=== PATIENT | female | born 1990 ===

== ENCOUNTER → 2023-07-10 11:29 | Outpatient (CLI) | payer OTHER, SELFPAY ==
[2023-07-10 12:19] LABS: Add Manual Diff / Slide Review NO; Basophils Absolute Auto 0 /uL (0-100); Basophils Percent Auto 0.5 % (0-2); Eosinophils Absolute Auto 100 /uL (0-450); Eosinophils Percent Auto 0.9 % (2-4); Hematocrit 36.6 % (36-46); Hemoglobin 12.6 g/dL (12.0-16.0); Lymphocytes Absolute Auto 2400 /uL (1100-4500); Lymphocytes Percent Auto 28.5 % (25-40); Mean Corpuscular HGB Conc 34.4 % (30-36); Mean Corpuscular Hemoglobin 30.5 PG (26-34); Mean Corpuscular Volume 88.5 fL (80-100); Monocytes Absolute Auto 500 /uL (0-900); Monocytes Percent Auto 6.2 % (3-14); Neutrophils Absolute Auto 5500 /uL (1500-7000); Neutrophils Percent Auto 63.9 % (50-75); Platelet Count 270 X10^3/uL (150-400); Red Blood Cell Count 4.14 X10^6/uL (4.0-5.2); Red Cell Distribution Width 12.2 % (11.6-14.8); White Blood Cell Count 8.5 X10^3/uL (4.5-11.0)
[2023-07-10 12:24] LABS: Appearance Urine UA CLEAR; Bilirubin Urine UA NEGATIVE (NEGATIVE); Color Urine UA YELLOW; Glucose Urine UA NEGATIVE (Negative); Ketones Urine UA NEGATIVE (NEGATIVE); Leukocyte Esterase Urine UA 1+ (NEGATIVE); Nitrite Urine UA NEGATIVE (Negative); Occult Blood Urine UA TRACE-INTACT (Negative); Protein Urine UA NEGATIVE (Negative); Specific Gravity Urine UA 1.015 (1.000-1.035); Urobilinogen Urine UA 0.2 E.U./dL (0.2)
[2023-07-10 12:32] LABS: Bacteria Urine None Seen; RBC Urine 1-5/HPF (0-5/HPF); Squamous Epithelial Cell Urine 0-1 /HPF (0-5/HPF); WBC Urine 1-5/HPF (0-5/HPF)
[2023-07-10 12:39] LABS: Alanine Aminotransferase 14 IU/L (<35); BUN Creatinine Ratio 9.8 (6-22); Blood Urea Nitrogen 6 mg/dL (7-17); Estimated Glomerular Filt Rate > 60 mL/min (>60); Uric Acid 3.4 mg/dL (2.5-6.2)
[2023-07-10 13:52] LABS: Urine N gonorrhoeae NOT DETECTED
[2023-07-10 14:02] LABS: Urine Chlamydia NOT DETECTED
[2023-07-11 04:38] LABS: RPR Screen Non Reactive (Non Reactive)
[2023-07-11 08:36] LABS: Varicella IgG Antibody 441 index (Immune >165)
[2023-07-11 20:12] LABS: HIV 1 & 2 Ab/Ag 4th Gen Combo NEGATIVE (NEGATIVE); Hepatitis B Surface Antigen NEGATIVE s/c (NEGATIVE); Rubella Antibody IgG 23.9 IU/mL (>15)
[2023-07-12 17:14] LABS: Aspartate Aminotransferase 20 IU/L (14-36)
[2023-07-12 18:25] LABS: Hep C Virus Ab w/Reflex Quant NEGATIVE s/c (NEGATIVE)
== END ==
PROVIDERS: Referring Provider Student in an Organized Health Care Education/Training Program; Visit Provider Student in an Organized Health Care Education/Training Program
DX: O09.299 Supervision of pregnancy with other poor reproductive or obstetric history, unspecified trimester (principal)
CPT/HCPCS: 36415; 80055; 81003; 81015; 82565; 84450; 84460; 84520; 84550; 86787; 86803; 86850; 86900; 86901; 87086; 87389; 87491; 87591

== ENCOUNTER → 2023-09-26 15:19 | Outpatient (CLI) | payer OTHER, SELFPAY ==
--- NOTE | 2023-09-26 15:19 | DI.US.S_ITS ---
PROCEDURE: US OB >= 14 WEEKS FETUS INDICATIONS: ANATOMY OUTSIDE/PRIOR DATING DATA: Last menstrual period (LMP): 05/01/2023. LMP-based estimated date of delivery (JULITA): 02/05/2024. First dating scan (date and location): 06/27/2023. Estimated date of delivery (JULITA) from first dating scan: 02/04/2024. The calculations are made using the clinical JULITA of 02/05/2024. TECHNIQUE: Real-time scanning was performed of the fetus, with image documentation and biometric measurements. Endovaginal scanning: Not performed COMPARISON: None. FINDINGS: General: A single living intrauterine gestation is present. Presentation: Transverse. Placenta: Placental position is anterior , without previa. Amniotic fluid index: 18.6 cm, normal range is 5-24 cm. Single deepest vertical pocket is 5.5 cm. heart rate: 157 beats per minute. Maternal cervical canal: 3.8 cm long. Normal lower limit is 2.5 cm. biometrics: Biparietal diameter: 5.2 cm Head circumference: 19.3 cm Abdominal circumference: 18.1 cm Femur length: 3.8 cm Clinically estimated gestational age: 21 weeks, 1 day Composite gestational age from present scan: 22 weeks, 1 day Estimated weight and percentile: 508 g, 97th percentile Anatomic survey: Neuro: Ventricles are non-dilated at less than 10 mm. Cisterna magna is normal at 3-11 mm. Cerebellum is normal in size and morphology. Nuchal skin fold: Normal at less than 6 mm between 14-21 weeks gestational age. Face: Nose and lips, facial profile are normal. Spine: No evidence for spina bifida. Heart: 4-chambered heart is present, with normal ventricular outflow tracts. Diaphragm: Diaphragm is intact. Stomach: Left-sided stomach is present. Kidneys: No hydronephrosis. Normal is less than 5 mm in 2nd trimester, less than 7 mm in 3rd trimester. Cord: 3-vessel cord has orthotopic insertion. Bladder: Normal in size. Extremities: All 4 extremities identified. IMPRESSION: Single intrauterine gestation with estimated age of 22 weeks, 1 day by biometry which is concordant with clinical dating. Estimated weight in 97th percentile. anatomic survey demonstrates no gross abnormalities. Approved by: Yoselin Hill M.D.,Ph.D. on 09/26/2023 at 21:54
== END ==
PROVIDERS: Referring Provider Family Medicine; Visit Provider Family Medicine
DX: O09.292 Supervision of pregnancy with other poor reproductive or obstetric history, second trimester (principal); Z3A.22 22 weeks gestation of pregnancy
CPT/HCPCS: 76811

== ENCOUNTER → 2023-10-17 07:11 | Outpatient (CLI) | payer OTHER, SELFPAY ==
[2023-10-17 09:29] LABS: GTT (PREG) 1 Hour PP 50gm Dose 159 mg/dL (76-139)
== END ==
PROVIDERS: PCP Student in an Organized Health Care Education/Training Program; Referring Provider Family Medicine; Visit Provider Family Medicine
DX: Z34.80 Encounter for supervision of other normal pregnancy, unspecified trimester (principal)
CPT/HCPCS: 36415; 82950

== ENCOUNTER → 2023-10-22 07:35 | Outpatient (CLI) | payer OTHER, SELFPAY ==
[2023-10-22 08:57] LABS: Glucose Fasting Gestational 98 mg/dL (76-95)
[2023-10-22 10:19] LABS: Glucose 1 Hour Gest 175 mg/dL (76-180)
[2023-10-22 10:54] LABS: Glucose 2 Hour Gest 134 mg/dL (76-155)
[2023-10-22 11:07] LABS: Glucose Tol Interp,Gestational INTERPRETATION
[2023-10-22 12:18] LABS: Glucose 3 Hour Gest 119 mg/dL (76-140)
== END ==
PROVIDERS: PCP Student in an Organized Health Care Education/Training Program; Referring Provider Family Medicine; Visit Provider Family Medicine
DX: O09.299 Supervision of pregnancy with other poor reproductive or obstetric history, unspecified trimester (principal)
CPT/HCPCS: 36415; 82951; 82952

== ENCOUNTER → 2023-12-18 11:26 | Outpatient (CLI) | payer OTHER, SELFPAY ==
--- NOTE | 2023-12-18 11:28 | DI.US.S_ITS ---
PROCEDURE: US OB FOLLOW UP INDICATIONS: Fundal height high for dates OUTSIDE/PRIOR DATING DATA: Last menstrual period (LMP): 05/01/2023. LMP-based estimated date of delivery (JULITA): 02/05/2024. First dating scan (date and location): 06/27/2023. Estimated date of delivery (JULITA) from first dating scan: 02/04/2024. Working JULITA is 02/05/2024 TECHNIQUE: Real-time scanning was performed of the fetus, with image documentation and biometric measurements. COMPARISON: [facility], , OB >= 14 WEEKS FETUS, 09/26/2023, 15:37. FINDINGS: General: A single living intrauterine gestation is present. Presentation: Vertex. Placenta: Placental position is anterior, without previa. Amniotic fluid index: 20.1 cm cm, normal range is 5-24 cm. Single deepest vertical pocket is 5.9 cm. heart rate: 158 beats per minute. Maternal cervical canal: 5.1 cm long. Normal lower limit is 2.5 cm. biometrics: Biparietal diameter: 34 weeks 6 days Head circumference: 35 weeks 3 days Abdominal circumference: 36 weeks 1 day Femur length: 33 weeks 4 days Clinically estimated gestational age: 33 weeks Composite gestational age from present scan: 35 weeks Estimated weight and percentile: 2636 g, 96 percentile IMPRESSION: Single living IUP redemonstrated and interval growth is greater than expected with estimated weight 96 percentile. Macrosomia cannot be excluded and close clinical correlation and follow-up is recommended. We strive to produce accurate, complete, and clear reports of imaging services. To assist us in improving patient care, this report was composed using standard report templates and voice recognition software. Therefore, it may contain abnormal punctuation, insertions and/or omissions. Occasional wrong-word or sound-alike substitutions may occur. Though we review the report and make efforts to correct it, we do recommend that the report be read carefully in proper context to recognize any text inaccuracies. Dictated by: Deangelo MELENDEZ Interpreted: Ghassan John MD on 12/18/2023 at 12:31 Transcribed by: RAVEN on 12/18/2023 at 12:34 Approved by: Ghassan John M.D. on 12/18/2023 at 15:49
== END ==
LOC: US 11:26
PROVIDERS: PCP Student in an Organized Health Care Education/Training Program; Referring Provider Family Medicine; Visit Provider Family Medicine
DX: Z34.93 Encounter for supervision of normal pregnancy, unspecified, third trimester (principal); Z3A.35 35 weeks gestation of pregnancy
CPT/HCPCS: 76816

== ENCOUNTER → 2024-01-07 10:15 | Outpatient (CLI) | payer OTHER, SELFPAY ==
[2024-01-08 09:16] LABS: Strep Grp B PCR NEG for Grp B Strep
== END ==
PROVIDERS: PCP Student in an Organized Health Care Education/Training Program; Visit Provider Student in an Organized Health Care Education/Training Program
DX: Z3A.36 36 weeks gestation of pregnancy (principal)
CPT/HCPCS: 87653

== ENCOUNTER → 2024-01-07 11:17 | Outpatient (CLI) | payer OTHER, SELFPAY ==
--- NOTE | 2024-01-07 11:18 | DI.US.S_ITS ---
PROCEDURE: US OB FOLLOW UP INDICATIONS: GROWTH CHECK OUTSIDE/PRIOR DATING DATA: Last menstrual period (LMP): 05/01/2023. LMP-based estimated date of delivery (JULITA): 02/05/2024. First dating scan (date and location): 06/27/2023. Estimated date of delivery (JULITA) from first dating scan: 02/04/2024. The calculations are made using the clinical JULITA of 02/05/2024. TECHNIQUE: Real-time scanning was performed of the fetus, with image documentation and biometric measurements. Endovaginal scanning: Not performed. COMPARISON: [facility], OB FOLLOW UP, 12/18/2023, 11:56. FINDINGS: General: A single living intrauterine gestation is present. Presentation: Vertex. Placenta: Placental position is anterior, without previa. Amniotic fluid index: 9.9 cm, normal range is 5-24 cm. Single deepest vertical pocket is 5.5 cm. heart rate: 149 beats per minute. Maternal cervical canal: 4.9 cm long. Normal lower limit is 2.5 cm. Close. biometrics: Biparietal diameter: 9.2 cm, 37 weeks 2 days Head circumference: 35.4 cm, 41 weeks 3 days Abdominal circumference: 37.5 cm, 41 weeks 3 days Femur length: 6.9 cm, 35 weeks 2 days Clinically estimated gestational age: 35 weeks 6 days Composite gestational age from present scan: 38 weeks 6 days Estimated weight: 3864 g IMPRESSION: 1. [place] living intrauterine at 38 weeks 6 days based on today's ultrasound. Vertex position. 2. Estimated weight 3864 g. We strive to produce accurate, complete, and clear reports of imaging services. To assist us in improving patient care, this report was composed using standard report templates and voice recognition software. Therefore, it may contain abnormal punctuation, insertions and/or omissions. Occasional wrong-word or sound-alike substitutions may occur. Though we review the report and make efforts to correct it, we do recommend that the report be read carefully in proper context to recognize any text inaccuracies. Dictated by: Ghassan John M.D. on 01/07/2024 at 16:56 Approved by: Ghassan John M.D. on 01/07/2024 at 17:06
== END ==
PROVIDERS: PCP Student in an Organized Health Care Education/Training Program; Referring Provider Student in an Organized Health Care Education/Training Program; Visit Provider Student in an Organized Health Care Education/Training Program
DX: Z36.89 Encounter for other specified antenatal screening (principal); Z3A.38 38 weeks gestation of pregnancy
CPT/HCPCS: 76816; 87653

== ENCOUNTER 2024-01-21 10:43 | Outpatient (CLI) | payer OTHER, SELFPAY ==
--- NOTE | 2024-01-21 10:49 | DI.US.S_ITS ---
PROCEDURE: US OB >= 14 WEEKS FETUS INDICATIONS: BPP OUTSIDE/PRIOR DATING DATA: Last menstrual period (LMP): 05/01/2023. LMP-based estimated date of delivery (JULITA): 02/05/2024. First dating scan (date and location): 06/08/2023. Estimated date of delivery (JULITA) from first dating scan: 02/04/2024. The calculations are made using the clinical JULITA of 02/05/2024. TECHNIQUE: Real-time scanning was performed of the fetus, with image documentation and biophysical profile. Endovaginal scanning: Not performed COMPARISON: [facility], OB >= 14 WEEKS FETUS, 09/26/2023, 15:37. FINDINGS: General: A single living intrauterine gestation is present. Presentation: Vertex. Placenta: Placental position is anterior , without previa. Amniotic fluid index: 15.7 cm, normal range is 5-24 cm. Single deepest vertical pocket is 5.3 cm. heart rate: 150 beats per minute. Maternal cervical canal: 4.1 cm long. Normal lower limit is 2.5 cm. BPP: Tone: 2 Movement: 2 Respiration: 0 Largest pocket: 2 IMPRESSION: Single living intrauterine at 37 weeks 6 days, JULITA of 02/05/2024. BPP 6 of 8. We strive to produce accurate, complete, and clear reports of imaging services. To assist us in improving patient care, this report was composed using standard report templates and voice recognition software. Therefore, it may contain abnormal punctuation, insertions and/or omissions. Occasional wrong-word or sound-alike substitutions may occur. Though we review the report and make efforts to correct it, we do recommend that the report be read carefully in proper context to recognize any text inaccuracies. Dictated by: Jeb Pastrana M.D. on 01/21/2024 at 11:46 Approved by: Jeb Pastrana M.D. on 01/21/2024 at 11:47
--- NOTE | 2024-01-21 12:16 | PM.OBTRLD ---
Visit Information Visit Information Date of evaluation: 01/21/24 Primary OB Provider: Paula Pappas On-call OB Provider: Paula Ppapas Reason for Evaluation: Yes non-stress test Comments/Additional reasons for admission: NST and BPP for decreased movement PFSH Medical History (Updated 06/19/23 @ 21:27 by Federica Pollard) Chronic back pain (~2014) Chicken pox (~1992) anxiety Surgical History (Updated 06/19/23 @ 21:27 by Federica Pollard) Anesthesia Hx of cholecystectomy (~2011) Social History marital status: number of children: 1 household members: spouse and children lives independently: Yes caregiver/support person: Yes housing: house pets and animals: Yes (1 cat; not managing litter box) education level: college occupational status: employed current occupational exposures/hazards: No special concepcion needs: No travel history: recent seatbelt use: always water heater temp set < 120 deg: Yes working smoke detector in home: Yes fire extinguisher in home: Yes carbon monox detector in home: Yes firearms in home: No do you feel safe at home: Yes Smoking Status: Never smoker second hand exposure: No alcohol intake: former substance use type: does not use during the past year weight has: remained stable well-balanced diet: about half the time daily servings fruits/ve-4 caffeine: Yes (usually decaf) Type(s) of exercise: aerobic and resistance training frequency: 3-4 times per week Evaluation Evaluation Baseline heart rate: 135 Variability: Average (6-10) monitor accelerations: Present Monitor Decelerations: Absent Category of Tracing: Reactive Diagnosis, Plan/Disposition Plan/Disposition Plan: NST reactive, BPP 6/8; okay for discharge OB Disposition: home
== END 2024-01-21 12:20 | disposition home or self-care (01) ==
LOC: LABOR 12:09 → OB 01-24 06:38
PROVIDERS: PCP Student in an Organized Health Care Education/Training Program; Referring Provider Student in an Organized Health Care Education/Training Program; Visit Provider Student in an Organized Health Care Education/Training Program
DX: O36.8130 Decreased fetal movements, third trimester, not applicable or unspecified (principal); Z3A.37 37 weeks gestation of pregnancy
CPT/HCPCS: 59025; 76811; G0378; G0379

== ENCOUNTER 2024-01-30 05:50 | Inpatient (IN) | payer OTHER, SELFPAY ==
[2024-01-30 07:25] LABS: Add Manual Diff / Slide Review NO; Basophils Absolute Auto 0 /uL (0-100); Basophils Percent Auto 0.3 % (0-2); Eosinophils Absolute Auto 100 /uL (0-450); Eosinophils Percent Auto 0.6 % (2-4); Hematocrit 35.7 % (36-46); Hemoglobin 12.1 g/dL (12.0-16.0); Lymphocytes Absolute Auto 2500 /uL (1100-4500); Lymphocytes Percent Auto 19.9 % (25-40); Mean Corpuscular Hemoglobin 31.1 PG (26-34); Mean Corpuscular Volume 91.5 fL (80-100); Monocytes Absolute Auto 900 /uL (0-900); Monocytes Percent Auto 7.2 % (3-14); Neutrophils Absolute Auto 9200 /uL (1500-7000); Platelet Count 210 X10^3/uL (150-400); Red Cell Distribution Width 13.7 % (11.6-14.8); White Blood Cell Count 12.7 X10^3/uL (4.5-11.0)
--- NOTE | 2024-01-30 07:31 | P.HPOB_ITS ---
OB HPI Date/Time Date of admission: 01/30/24 Date Patient Seen: 01/30/24 Time Patient Seen: 07:30 History of Present Condition Chief complaint: JULITA Calculator 2 Estimated Delivery Date Method Current WG Current Estimate 02/05/24 LMP (Certain) 39w 1d Other Estimates 02/04/24 Ultrasound #1 39w 2d : 3 Para: 1 Narrative: Patient is a 33 yo who had complicated by macrosomia. She had a vaginal delivery with her first child at 38 weeks via vaginal delivery complicated by pre-eclampsia, shoulder dystocia and episiotomy. First baby weighed 7lb 6oz. This baby has consistently weighed over 99th percentile with EFW at 35 weeks of over 3800 grams. No contrations. Good movement. care: good care Dating criteria OB: LMP confirmed by 1st trimester US Ultrasounds: normal 1st trimester US (LGA) and normal mid trimester US (LGA) Obstetrical complications: other (LGA) Indications Operative indications ( section): other (macrosomia) Preadmission Labs Last OB Lab Results: 2 Blood Type O Positive 07/10/23 11:54 Antibody Screen Negative 07/10/23 11:54 Hct 35.7 % (36-46) L 01/30/24 07:10 Hgb 12.1 g/dL (12.0-16.0) 01/30/24 07:10 Hep Bs Antigen Negative s/c (NEGATIVE) 07/10/23 11:54 Hepatitis C Antibody Negative s/c (NEGATIVE) 07/10/23 11:54 Rubella Antibody 23.9 IU/mL (>15) 07/10/23 11:54 VZV IgG Antibody 441 index (Immune >165) 07/10/23 11:54 Glucose 1 Hr 50 gm 159 mg/dL (76-139) H 10/17/23 08:19 Group B Strep (PCR) Neg for grp b strep 01/07/24 10:40 Glucose Tolerance Testin hr and 3 hr -: Chlamydia screen: negative and Gonorrhea screen: negative Prior (ies) Past Pregnancies Del. Date GA/Weeks Labor Lgth Wt Sex Route Outcome Anesthesia Place Delv Breastfeed Preg Comp Name 02/06/20 4-5 spontaneous 05/24/21 38 7 7 lb 8 oz Male vaginal live - full term ep idural [place] 4 1/2 months pre-eclampsia Kevyn Delivery Date: 02/06/20 Last Updated by: Olya Marie RN Needed PO Rx to pass Delivery Date: 05/24/21 Last Updated by: Olya Marie RN episiotomy Evaluation Evaluation Baseline heart rate: 145 Variability: Average (6-10) monitor accelerations: Present Monitor Decelerations: Absent Category of Tracing: Reactive PFSH Medical History (Updated 06/19/23 @ 21:27 by Federica Pollard) Chronic back pain (~2014) Chicken pox (~1992) anxiety Surgical History (Updated 06/19/23 @ 21:27 by Federica Pollard) Anesthesia Hx of cholecystectomy (~2011) Social History marital status: number of children: 1 household members: spouse and children lives independently: Yes caregiver/support person: Yes housing: house pets and animals: Yes (1 cat; not managing litter box) education level: college occupational status: employed current occupational exposures/hazards: No special concepcion needs: No travel history: recent seatbelt use: always water heater temp set < 120 deg: Yes working smoke detector in home: Yes fire extinguisher in home: Yes carbon monox detector in home: Yes firearms in home: No do you feel safe at home: Yes Smoking Status: Never smoker second hand exposure: No alcohol intake: former substance use type: does not use during the past year weight has: remained stable well-balanced diet: about half the time daily servings fruits/ve-4 caffeine: Yes (usually decaf) Type(s) of exercise: aerobic and resistance training frequency: 3-4 times per week Meds Home Medications and Allergies Home Medications Medication Instructions Recorded Confirmed Type vitamin-ferrous sulfate tab PO 06/05/23 01/28/24 History 27 mg iron-folic acid 0.8 mg tablet Allergies Allergy/AdvReac Type Severity Reaction Status Date / Time No Known Drug Allergies Allergy Verified 01/28/24 10:35 Objective Labs 01/30/24 07:10 Labs: Laboratory Results - last 24 hr 01/30/24 07:10 WBC 12.7 H RBC 3.90 L Hgb 12.1 Hct 35.7 L MCV 91.5 MCH 31.1 MCHC 34.0 RDW 13.7 Plt Count 210 Neut % (Auto) 72.0 Lymph % (Auto) 19.9 L [place] % (Auto) 7.2 Eos % (Auto) 0.6 L Baso % (Auto) 0.3 Neut # (Auto) 9200 H Lymph # (Auto) 2500 [place] # (Auto) 900 Eos # (Auto) 100 Baso # (Auto) 0 Assessment and Plan Assessment and Plan Assessment and Plan narrative: 33 yo at 39w1d here for primary delivery for macrosomia. -type and screen -ancef 2g -proceed with pLTCS Time-Based Coding :: [TOTAL MINUTES] spent with patient and on the chart (including review of chart, obtaining history, exam, reviewing outside data, placing orders, documenting exam and treatment plan, and counseling patient) on [DATE].
[2024-01-30] MEDS: LACTATED RINGERS 1,000 ML 999 ML IV (07:42)
[2024-01-30] MEDS: CITRIC ACID/SODIUM CITRATE 15 ML SOLUTION 30 ML PO (07:44)
--- NOTE | 2024-01-30 07:56 | SUR.OPER ---
Supine on Padded OR bed, head on pillow, safety belt at thigh, arms secured on padded arm boards at <90 degrees abduction. Bump under right buttock. Legs uncrossed with pillow under knees, gel pad to heels, tape over blanket to lower legs.
[2024-01-30] MEDS: CEFAZOLIN 2 GM/100 ML PREMIX 100 ML IV (08:07)
--- NOTE | 2024-01-30 08:33 | SUR.OPER ---
Viable baby girl born at 0824. Cord blood and placenta given to OB RN.
[2024-01-30 09:21] VITALS: BP 130/63; PULSE 81; RESP 15; TEMP 36.3; O2SAT 98
[2024-01-30 09:26] VITALS: BP 155/69; PULSE 103; RESP 14
[2024-01-30 09:31] VITALS: BP 108/60; PULSE 105; RESP 14; O2SAT 96
[2024-01-30 09:36] VITALS: BP 100/62; PULSE 100; RESP 15; O2SAT 96
--- NOTE | 2024-01-30 09:43 | PM.OBCS.1 ---
Operative Date/Time/Diagnoses Date of procedure: 01/30/24 Time of procedure: 08:15 Pre-op diagnosis: macrosomia Post-op diagnosis: same Procedure & Clinicians Procedure: primary delivery Same procedure as scheduled: Yes Indications: macrosomia Surgeon: Paula Pappas Click Yes if Unassisted: No Dairy Farmer: Ronda Caldera Reason for Dairy Farmer: macrosomia Anesthesia Type: Spinal Operative Notes Findings: Normal uterus, ovaries, and tubes Closure Type: primary Applied: Catheter Estimated Blood Loss (mL): 600 Blood products transfused: none Procedure in detail: OPERATIVE COURSE: The patient was taken to the operating room where spinal anesthesia was placed. She was then prepared and draped in the normal sterile fashion in the dorsal supine position with a leftward tilt. Anesthesia was tested and found to be adequate. A Pfannensteil skin incision was then made with the scalpel and carried through to the underlying layer of fascia with the scalpel. The fascia was incised in the midline and the incision extended laterally with blunt dissection. The superior aspect of the fascial incision was then grasped with Amri clamps, elevated with the help of the surgical instruments inspector, and the underlying rectus muscles dissected off bluntly and sharply where needed. Attention was then turned to the inferior aspect of the incision which, in a similar fashion, was grasped, tented up with Mari clamps, and the rectus muscle dissected off bluntly and sharply with Hutton scissors. The rectus muscles were then in the midline, and the peritoneum was identified and entered bluntly. The peritoneal incision was then extended with good visualization of the bladder. Retraction was provided by the surgical instruments inspector. The florinda retractor was then inserted and the vesicouterine peritoneum identified. The lower uterine segment was incised in a transverse fashion with the scalpel, with the surgical instruments inspector providing suction. The uterine incision was then extended superolaterally by pulling superolaterally on both sides. Membranes were ruptured and fluid was clear. The bladder blade was removed the infant's head was flexed out of OA position and delivered atraumatically, with fundal pressure by the surgical instruments inspector. The nose and mouth were suctioned with bulb suction and the cord was clamped and cut. The was handed off to the waiting nursing staff. Cord blood was collected for Rh status. The placenta was then delivered with gentle cord traction. The uterus was then cleared of all clots and debris. The uterine incision was repaired with 0 vicryl in a running, locked fashion. A second layer of 0 monocryl was used to obtain excellent hemostasis. The florinda retractor was removed. The gutters were cleared of all clots. Hysterotomy was investigated and found to be hemostatic. The peritoneum was closed with 3-0 vicryl. The fascia was reapproximated with 0-vicryl in a running fashion. The subcutaneous tissue was reapproximated with 3-0 vicryl. The skin was closed with 4-0 monocryl. The surgical instruments inspector helped with retraction during closures. SPONGE AND NEEDLE COUNTS: Correct x3. DRESSING: skin glue ANTICOAGULATION: SCDs applied prior to Surgery Preop antibiotics given (see MAR). The patient was taken to recovery room having tolerated procedure well. Complications: none Post-operative Condition: stable Disposition: PACU Aftercare: routine postop
[2024-01-30] MEDS: KETOROLAC 30 MG/ML VIAL IV ×2 (12:10→17:52)
[2024-01-30 12:50] VITALS: BP 115/56
[2024-01-30] MEDS: diphenhydrAMINE 50 MG/ML VIAL 25 MG IV (15:35)
[2024-01-31] MEDS: KETOROLAC 30 MG/ML VIAL IV ×2 (00:09→06:08)
[2024-01-31 06:17] LABS: Add Manual Diff / Slide Review NO; Basophils Absolute Auto 0 /uL (0-100); Basophils Percent Auto 0.3 % (0-2); Eosinophils Absolute Auto 100 /uL (0-450); Eosinophils Percent Auto 0.4 % (2-4); Hemoglobin 10.7 g/dL (12.0-16.0); Lymphocytes Absolute Auto 2700 /uL (1100-4500); Lymphocytes Percent Auto 19.4 % (25-40); Mean Corpuscular HGB Conc 34.4 % (30-36); Mean Corpuscular Hemoglobin 31.7 PG (26-34); Mean Corpuscular Volume 92.3 fL (80-100); Monocytes Absolute Auto 1100 /uL (0-900); Monocytes Percent Auto 7.9 % (3-14); Neutrophils Absolute Auto 9900 /uL (1500-7000); Platelet Count 167 X10^3/uL (150-400); Red Blood Cell Count 3.36 X10^6/uL (4.0-5.2); Red Cell Distribution Width 14.1 % (11.6-14.8); White Blood Cell Count 13.8 X10^3/uL (4.5-11.0)
--- NOTE | 2024-01-31 07:47 | PM.OBPN.1 ---
Subjective - OB Subjective Patient comments: no complaints, pain well controlled and tolerating diet baby status: doing well feeding status: breast and bottle feeding Narrative: Doing well. without difficulty. Voiding well. No flatus yet. Pain controlled. Date Patient Seen: 01/31/24 Time Patient Seen: 07:15 Exam Vital Signs (past 8 hours): Oxygen Delivery Method Room Air Objective Labs 01/31/24 06:08 Labs: Laboratory Results - last 24 hr 01/30/24 01/31/24 07:10 06:08 WBC 13.8 H RBC 3.36 L Hgb 10.7 L Hct 31.0 L MCV 92.3 MCH 31.7 MCHC 34.4 RDW 14.1 Plt Count 167 Neut % (Auto) 72.0 Lymph % (Auto) 19.4 L [place] % (Auto) 7.9 Eos % (Auto) 0.4 L Baso % (Auto) 0.3 Neut # (Auto) 9900 H Lymph # (Auto) 2700 [place] # (Auto) 1100 H Eos # (Auto) 100 Baso # (Auto) 0 Blood Type O Positive Antibody Screen Negative Assessment & Plan Plan day: 1 plan OB: routine postop care Time-Based Coding :: 30 minutes spent with patient and on the chart (including review of chart, obtaining history, exam, reviewing outside data, placing orders, documenting exam and treatment plan, and counseling patient) on 01/31/24.
[2024-01-31] MEDS: DOCUSATE 100 MG CAPSULE PO (08:45)
[2024-01-31] MEDS: PRENATAL VIT,CALC/IRON/FOLIC 1 TABLET 1 TAB PO (08:45)
[2024-01-31] MEDS: IBUPROFEN 600 MG TABLET PO ×2 (12:11→18:45)
[2024-01-31] MEDS: ACETAMINOPHEN 325 MG TABLET 650 MG PO ×2 (16:07→21:57)
[2024-02-01] MEDS: IBUPROFEN 600 MG TABLET PO ×2 (00:29→05:54)
[2024-02-01] MEDS: ACETAMINOPHEN 325 MG TABLET 650 MG PO (05:55)
--- NOTE | 2024-02-01 08:30 | PM.OBDS.1 ---
Discharge Providers Provider Date of admission: 01/30/24 05:50 Discharge Date: 02/01/24 Primary care physician: Paula Pappas MD Consults: 01/30/24 10:09 Consult to Ultrasound Technologist Routine Comment: Discharge provider: Paula Pappas MD Summary Hospital Course Date Patient Seen: 02/01/24 Time Patient Seen: 07:45 Hospital Course: Patient was admitted for pLTCS at 39w1d for macrosomia. Uncomplicated delivery and recovery. with formula supplementation. [place] doing well. Peripartum Data Infant Delivery Method: Section complications: none Status at Discharge Cognitive/behavioral status at discharge: oriented Functional status at discharge: independent ambulation Overall status at discharge: patient is back to baseline Time Spent with Patient Time attestation: Total time spent providing and/or coordinating discharge services: Time spent: Greater than 30 minutes Objective Labs 01/31/24 06:08 Exam Vital Signs (past 8 hours): Oxygen Delivery Method Room Air Narrative Exam Narrative: NAD. Breathing easily. Incision clean/dry/intact. Skin glue on top. Discharge Plan Discharge Plan Patient Disposition: Home Discharge orders & Medications Prescriptions: New acetaminophen 325 mg Tablet 650 mg PO Q6H Qty: 60 0RF docusate sodium 100 mg Capsule 100 mg PO DAILY Qty: 30 0RF ibuprofen 600 mg Tablet 600 mg PO Q6H Qty: 30 0RF oxycodone 5 mg Tablet 5 mg PO Q4H PRN (Reason: Pain, Moderate (4-6)) Qty: 20 0RF Continued vit-ferrous sulfat-FA 27 mg iron- 0.8 mg tablet PO Follow up/Referrals: Paula Pappas MD [Primary Care Provider] - (Incision check on 02/04/2024 @1030 6 week post appt on 03/12/2024 @1000) Visit Report/Discharge Packet Instructions: DI for Stand Alone Forms: Discharge: Care, Patient Portal/API, Stroke Signs & Symptoms Discharge Data Primary Care Provider: Paula Pappas
[2024-02-01 09:13] VITALS: BP 135/66; PULSE 81; RESP 19; TEMP 36.7
== END 2024-02-01 09:49 | disposition home or self-care (01) | DRG 788 ==
PROVIDERS: Admitting Provider Student in an Organized Health Care Education/Training Program; PCP Student in an Organized Health Care Education/Training Program; Referring Provider Student in an Organized Health Care Education/Training Program; Visit Provider Student in an Organized Health Care Education/Training Program
PROC: 10D00Z1 Extraction of Products of Conception, Low, Open Approach (ICD-10-PCS; CPT 59514; principal; 2024-01-30 07:45)
DX: O36.63X0 Maternal care for excessive fetal growth, third trimester, not applicable or unspecified (principal); Z3A.39 39 weeks gestation of pregnancy; Z37.0 Single live birth
CPT/HCPCS: 36415; 59050; 59400; 59510; 59514; 85025; 86850; 86900; 86901; G0379; J0690; J1100; J1200; J1885; J2274; J2405; J2590